=== PATIENT | male | born 1945 | race Caucasian/White ===

== ENCOUNTER 2018-12-11 06:40 | Day surgery (SDC) | payer MEDICARE ==
[2013-08-19 12:51] VITALS: BMI 29.7
[2018-12-11] MEDS ORDERED: Propofol 10 mg/ml Inj (20 ML) ONE (07:43)
[2018-12-11] MEDS ORDERED: Lidocaine PF 2% (5 ml) Inj (For Cardiac Arrhy) ONE (07:43)
[2018-12-11] MEDS ORDERED: Sodium Chloride 0.9% 1,000 ML IV SCH (09:30)
[2018-12-11 10:37] VITALS: TEMP 98
[2018-12-11 11:26] VITALS: BP 121/71; PULSE 69; RESP 15; O2SAT 100
== END 2018-12-11 11:25 | disposition home or self-care (01) ==
LOC: ENDO 06:40
PROVIDERS: ATTEND Specialist
DX: Z12.11 Encounter for screening for malignant neoplasm of colon (principal); K63.5 Polyp of colon; Z86.010 Personal history of colon polyps; K64.8 Other hemorrhoids; I10 Essential (primary) hypertension
CPT/HCPCS: 45380; 88305; J2704; J7030; J7040

== ENCOUNTER 2019-02-26 07:04 | Outpatient (CLI) | payer MEDICARE | END 2019-02-26 07:05 | disposition home or self-care (01) | LOC: CARDIO 07:04 ==